=== PATIENT | male | born 1965 | race Caucasian/White ===

== ENCOUNTER 2017-04-03 02:54 | Emergency (ER) | payer SELFPAY ==
[~2017-04-03 02:54] MED LIST: METFORMIN HCL500 MG PO
[2017-04-03 03:16] VITALS: BP 135/54
== END 2017-04-03 03:16 | disposition left against medical advice (07) ==
LOC: ER 02:54
DX: R07.2 Precordial pain (principal); E11.9 Type 2 diabetes mellitus without complications; F17.200 Nicotine dependence, unspecified, uncomplicated; Z82.49 Family history of ischemic heart disease and other diseases of the circulatory system
CPT/HCPCS: 99282